=== PATIENT | female | born 1965 | race Caucasian/White ===

== ENCOUNTER → 2023-10-14 16:36 | Outpatient (REF) | payer OTHER, SELFPAY | LOC: RCS 16:36 | PROVIDERS: ATTENDING PHYSICIAN Internal Medicine Interventional Cardiology; FAMILY PHYSICIAN Family Medicine | DX: R00.2 Palpitations (principal); R07.89 Other chest pain | CPT/HCPCS: 93306 ==

== ENCOUNTER → 2023-10-22 13:21 | Outpatient (REF) | payer OTHER, SELFPAY | LOC: WDC 13:21 | PROVIDERS: ATTENDING PHYSICIAN Family Medicine | DX: Z12.31 Encounter for screening mammogram for malignant neoplasm of breast (principal); M85.80 Other specified disorders of bone density and structure, unspecified site | CPT/HCPCS: 76536; 77063; 77067; 77080 ==

== ENCOUNTER → 2023-11-18 14:46 | Outpatient (REF) | payer OTHER, SELFPAY | LOC: RCS 14:46 | PROVIDERS: ATTENDING PHYSICIAN Internal Medicine Interventional Cardiology; FAMILY PHYSICIAN Family Medicine | DX: R00.2 Palpitations (principal); R07.89 Other chest pain | CPT/HCPCS: 93017 ==